=== PATIENT | male | born 1965 | race Caucasian/White ===

== ENCOUNTER 2018-04-29 10:15 | Emergency (ER) | payer MEDICAID, OTHER ==
[~2018-04-29] VITALS: Ht 185.4 cm; Wt 92.0 kg
--- NOTE | 2018-04-29 10:54 | NUR ---
Called [facility]. They will inform Dr Heart to come and see pt as we are not doing telepsych during this time.
[2018-04-29 11:11] LABS: URINE AMPHETAMINE SCREEN NEGATIVE (Neg); URINE BARBITUATE SCREEN POSITIVE (Neg); URINE BENZODIAZEPINES SCREEN NEGATIVE (Neg); URINE CANNABINOID SCREEN NEGATIVE (Neg); URINE COCAINE SCREEN NEGATIVE (Neg); URINE METHADONE SCREEN NEGATIVE (Neg); URINE OPIATE SCREEN NEGATIVE (Neg); URINE PHENCYCLIDINE SCREEN NEGATIVE (Neg)
[2018-04-29 11:17] LABS: BASOPHILS % (AUTO) 0.8 % (0-1); EOSINOPHILS % (AUTO) 0.8 % (0-6); HEMATOCRIT 42.2 % (42.0-52.0); HEMOGLOBIN 14.2 g/dl (14.0-17.9); LYMPHOCYTES # (AUTO) 1.5 X10'3 (1.1-4.8); LYMPHOCYTES % (AUTO) 23.8 % (21-51); MEAN CORPUSCULAR HEMOGLOBIN 28.4 PG (27.0-31.0); MEAN CORPUSCULAR HGB CONC 33.6 g/dL (33.0-36.5); MEAN CORPUSCULAR VOLUME 84.7 FL (78-98); MEAN PLATELET VOLUME 6.2 FL (7.4-10.4); MONOCYTES # (AUTO) 0.6 X10'3 (0-0.9); MONOCYTES % (AUTO) 9.7 % (2-12); NEUTROPHILS # (AUTO) 4.2 X10'3 (1.8-7.7); NEUTROPHILS % (AUTO) 64.9 % (42-75); PLATELET COUNT 326 X10'3 (140-440); RED BLOOD COUNT 4.98 X10'6 (4.70-6.10); RED CELL DISTRIBUTION WIDTH 15.5 % (11.5-14.5); WHITE BLOOD COUNT 6.4 X10'3 (4.5-11.0)
--- NOTE | 2018-04-29 11:50 | NUR ---
Dr Heart in speaking with pt at bedside.
[2018-04-29 11:51] LABS: ALANINE AMINOTRANSFERASE 24 U/L (12-78); ALBUMIN 3.7 G/DL (3.4-5.0); ALBUMIN/GLOBULIN RATIO 0.9 (1.1-1.5); ALKALINE PHOSPHATASE 116 IU/L (46-116); ANION GAP 5 (8-16); ASPARTATE AMINO TRANSFERASE 16 U/L (10-37); BILIRUBIN,TOTAL 0.2 MG/DL (0.1-1.0); BLOOD UREA NITROGEN 12 MG/DL (7-18); BUN/CREATININE RATIO 13.3 (5.4-32.0); CALCIUM 9.1 MG/DL (8.5-10.1); CHLORIDE 102 MMOL/L (99-107); ETHANOL < 0.010 GM/DL (0.0-0.010); GLUCOSE 97 MG/DL (70-104); POTASSIUM 3.9 MMOL/L (3.5-5.1); SODIUM 139 MMOL/L (135-145); TOTAL CARBON DIOXIDE 31.7 MMOL/L (24-32); eGFR 88 ML/MIN
[2018-04-29] MEDS ORDERED: NO HOME MEDS (13:10)
--- NOTE | 2018-04-29 14:12 | NUR ---
Pt sitting up in chair. Calm and cooperative.
[2018-04-29] MEDS ORDERED: clonazePAM 1mg tablet PO ONE (15:05)
[2018-04-29] MEDS ORDERED: cloNIDine 0.1 MG/24 HOUR patch (7 day patch) TD ONE (15:05)
[2018-04-29] MEDS: risperiDONE 0.5mg tablet PO ONE ×2 (15:16→15:39)
--- NOTE | 2018-04-29 18:34 | NUR ---
ASSUMED PT CARE FROM [place]; LABS, VITALS, MEDICATIONS AND PT OVERALL CONDITION REVIEWED. PT ASSESSED IS SLEEPING ON L SIDE, APPEARS IN NO ACUTE DISTRESS. RESPIRATION EVEN,UNLABORED. PT IS MEDICALLY CLEARED ON , PENDING [facility] ASSESSMENT.
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
--- NOTE | 2018-04-29 20:10 | NUR ---
PT EVALUATED BY [facility] WHO SAYS HE MEETS CRITERIA FOR A 5150 HOLD DUE TO "SUICIDAL IDEATION" AND HOMMICIDAL IDEATION. I TALKED TO THE MENTAL HEALTH DYE FEEDER AND TOLD HER HIS THREATS AGAINST STAFF WOULD NOT BE TOLERATED AND [employer] WOULD BE CALLED.
--- NOTE | 2018-04-29 20:55 | NUR ---
PT HAS BEEN SITTING QUIETLY FOR APPROX 30 MINS. ANTONIO FROM [employer] HANDED HIM A BASIA.
--- NOTE | 2018-04-29 23:38 | NUR ---
PT APPEARS TO BE SLEEPING.
[2018-04-30] MEDS: risperiDONE 0.5mg tablet PO SCH ×2 (00:35→09:17)
[2018-04-30] MEDS: cloNIDine 0.1 mg tablet PO SCH ×2 (00:35→09:16)
--- NOTE | 2018-04-30 01:02 | NUR ---
PT UP REQUESTING NIGHT TIME MEDICATIONS, I UPDATED HIS MEDICATIONS TO SHOW BID, RECOMMENDED. UPON ATTEMPTING TO GIVE PATIENT HIS MEDICATIONS HE REFUSED SAYING HE DIDN'T WANT IT ANYMORE. MEDICATIONS DISPOSED OF PER PROTOCOL.
--- NOTE | 2018-04-30 02:06 | NUR ---
PT LAYING ON L SIDE, RESP EVEN, UNLABORED.
--- NOTE | 2018-04-30 06:40 | NUR ---
Patient resting quietly no distress.
--- NOTE | 2018-04-30 09:04 | NUR ---
At 0830 patient refused to take meds unless klonopin is ordered. Spoke with PA, awaiting orders.
[2018-04-30] MEDS ORDERED: clonazePAM 1mg tablet PO ONE (09:05)
[2018-04-30 14:13] LABS: CLARITY,URINE CLEAR (Clear); COLOR,URINE YELLOW (Yellow); GLUCOSE, URINE NEGATIVE (Neg); KETONES,URINE NEGATIVE (Neg); LEUKOCYTE ESTERASE ,URINE NEGATIVE (Neg); NITRITES, URINE NEGATIVE (Neg); OCCULT BLOOD,URINE TRACE-INTACT (Neg); PROTEIN,URINE NEGATIVE (Neg); UROBILINOGEN,URINE 0.2 E.U/dL (0.2-1.0)
[2018-04-30 14:17] LABS: UA COLLECTION TYPE CLN CATCH MIDSTREAM
[2018-04-30 14:21] LABS: BACTERIA,URINE NONE SEEN /HPF (Neg); RBC,URINE 0-2 /HPF (0-2); SQUAMOUS EPITHELIAL CELL,UR FEW /LPF (FEW); WBC,URINE NONE SEEN /HPF (0-4)
--- NOTE | 2018-04-30 17:09 | NUR ---
Pt. given cloths and belongings for transport to [facility] by [facility]
[2018-04-30 17:21] VITALS: BP 138/95
== END 2018-04-30 17:23 ==
LOC: ER 10:16
DX: F32.9 Major depressive disorder, single episode, unspecified (principal); R44.1 Visual hallucinations; R44.0 Auditory hallucinations; H53.8 Other visual disturbances; R45.1 Restlessness and agitation; Z59.0 Homelessness
CPT/HCPCS: 36415; 80053; 80305; 80320; 81001; 84443; 85025; 99285

== ENCOUNTER 2018-05-21 02:38 | Emergency (ER) | payer MEDICAID ==
[~2018-05-21] VITALS: Ht 185.4 cm; Wt 69.3 kg
[~2018-05-21 02:38] MED LIST: NO HOME MEDS
--- NOTE | 2018-05-21 03:10 | NUR ---
on assessment, pt no longer is experiencing chest pain
[2018-05-21 03:22] LABS: BASOPHILS % (AUTO) 0.5 % (0-1); EOSINOPHILS # (AUTO) 0.1 X10'3 (0-0.9); EOSINOPHILS % (AUTO) 0.8 % (0-6); HEMATOCRIT 39.3 % (42.0-52.0); HEMOGLOBIN 13.1 g/dl (14.0-17.9); LYMPHOCYTES # (AUTO) 2.1 X10'3 (1.1-4.8); MEAN CORPUSCULAR HEMOGLOBIN 27.6 PG (27.0-31.0); MEAN CORPUSCULAR HGB CONC 33.3 g/dL (33.0-36.5); MEAN CORPUSCULAR VOLUME 82.9 FL (78-98); MEAN PLATELET VOLUME 6.3 FL (7.4-10.4); MONOCYTES # (AUTO) 1.1 X10'3 (0-0.9); MONOCYTES % (AUTO) 13.2 % (2-12); NEUTROPHILS # (AUTO) 4.8 X10'3 (1.8-7.7); NEUTROPHILS % (AUTO) 59.5 % (42-75); PLATELET COUNT 329 X10'3 (140-440); RED BLOOD COUNT 4.74 X10'6 (4.70-6.10); RED CELL DISTRIBUTION WIDTH 14.9 % (11.5-14.5)
[2018-05-21 03:32] LABS: ALANINE AMINOTRANSFERASE 20 U/L (12-78); ALBUMIN 3.7 G/DL (3.4-5.0); ALBUMIN/GLOBULIN RATIO 0.9 (1.1-1.5); ALKALINE PHOSPHATASE 108 IU/L (46-116); ANION GAP 7 (8-16); ASPARTATE AMINO TRANSFERASE 24 U/L (10-37); BILIRUBIN,TOTAL 0.3 MG/DL (0.1-1.0); BLOOD UREA NITROGEN 18 MG/DL (7-18); CALCIUM 9.2 MG/DL (8.5-10.1); CHLORIDE 102 MMOL/L (99-107); CREATININE 0.82 MG/DL (0.60-1.10); GLUCOSE 86 MG/DL (70-104); POTASSIUM 3.9 MMOL/L (3.5-5.1); SODIUM 138 MMOL/L (135-145); TOTAL CARBON DIOXIDE 28.9 MMOL/L (24-32); TOTAL PROTEIN 7.6 G/DL (6.4-8.2); eGFR > 90 ML/MIN
[2018-05-21 03:38] LABS: INR 1.1 INR; PARTIAL THROMBOPLASTIN TIME 26 SECONDS (22-32); PROTHROMBIN TIME 10.7 SECONDS (9.0-12.0)
[2018-05-21 04:07] VITALS: BP 152/95
== END 2018-05-21 04:09 | disposition home or self-care (01) ==
LOC: ER 02:39
DX: R42 Dizziness and giddiness (principal); R07.9 Chest pain, unspecified; F17.200 Nicotine dependence, unspecified, uncomplicated; F12.90 Cannabis use, unspecified, uncomplicated; F15.90 Other stimulant use, unspecified, uncomplicated; Z59.0 Homelessness
CPT/HCPCS: 36415; 71045; 80053; 84484; 85025; 85610; 85730; 93005; 99284

== ENCOUNTER 2019-01-27 11:43 | Emergency (ER) | payer MEDICAID ==
[~2019-01-27] VITALS: Ht 185.4 cm; Wt 90.9 kg
[2019-01-27 11:56] VITALS: BP 103/91
== END 2019-01-27 14:19 | disposition home or self-care (01) ==
LOC: ER 11:44
DX: F10.10 Alcohol abuse, uncomplicated (principal); F15.10 Other stimulant abuse, uncomplicated; F12.90 Cannabis use, unspecified, uncomplicated; Z59.0 Homelessness
CPT/HCPCS: 99281

== ENCOUNTER 2019-01-27 14:27 | Emergency (ER) | payer MEDICAID ==
[~2019-01-27] VITALS: Ht 188 cm; Wt 94.7 kg
[2019-01-27 14:30] VITALS: BP 140/84
== END 2019-01-27 15:15 | disposition home or self-care (01) ==
LOC: ER 14:28
DX: Z76.5 Malingerer [conscious simulation] (principal); R45.851 Suicidal ideations; R06.03 Acute respiratory distress; F10.10 Alcohol abuse, uncomplicated; F12.90 Cannabis use, unspecified, uncomplicated; F15.90 Other stimulant use, unspecified, uncomplicated; Z59.0 Homelessness
CPT/HCPCS: 93005; 99283

== ENCOUNTER 2019-02-01 09:41 | Emergency (ER) | payer SELFPAY ==
[~2019-02-01] VITALS: Ht 185.4 cm; Wt 93.0 kg
--- NOTE | 2019-02-01 10:36 | NUR ---
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
[2019-02-01 11:34] VITALS: BP 154/74
[2019-02-01] MEDS ORDERED: PANT-47 PO (12:13)
[2019-02-01] MEDS ORDERED: GABA-532 PO (12:13)
--- NOTE | 2019-02-01 12:40 | NUR ---
Nino orozco in [facility] - 02/01/19 at 1250 by [email or web address] orthotist prosthetist in room
[2019-02-01] MEDS ORDERED: LORazepam 1 MG tablet PO ONE (12:50)
== END 2019-02-01 12:54 | disposition home or self-care (01) ==
LOC: ER 09:42
DX: F41.9 Anxiety disorder, unspecified (principal); I10 Essential (primary) hypertension; G89.29 Other chronic pain; F32.9 Major depressive disorder, single episode, unspecified; F12.90 Cannabis use, unspecified, uncomplicated; F15.90 Other stimulant use, unspecified, uncomplicated; Z59.0 Homelessness
CPT/HCPCS: 99284

== ENCOUNTER 2019-02-05 13:15 | Emergency (ER) | payer MEDICAID, OTHER ==
[~2019-02-05] VITALS: Ht 185.4 cm; Wt 91.8 kg
[~2019-02-05 13:15] MED LIST changes: +GABA-532 PO; +PANT-47 PO
[2019-02-05 13:21] VITALS: BP 146/99
--- NOTE | 2019-02-05 13:34 | NUR ---
DURING EKG, PT TOLD TECH HE DID METH THIS AM.
[2019-02-05 14:21] LABS: BASOPHILS % (AUTO) 0.6 % (0-1); EOSINOPHILS # (AUTO) 0.1 X10'3 (0-0.9); EOSINOPHILS % (AUTO) 1.3 % (0-6); HEMATOCRIT 41.5 % (42.0-52.0); HEMOGLOBIN 14.2 g/dl (14.0-17.9); LYMPHOCYTES # (AUTO) 1.5 X10'3 (1.1-4.8); LYMPHOCYTES % (AUTO) 25.6 % (21-51); MEAN CORPUSCULAR HEMOGLOBIN 29.2 PG (27.0-31.0); MEAN CORPUSCULAR HGB CONC 34.2 g/dL (33.0-36.5); MEAN CORPUSCULAR VOLUME 85.4 FL (78-98); MEAN PLATELET VOLUME 6.3 FL (7.4-10.4); MONOCYTES # (AUTO) 0.7 X10'3 (0-0.9); MONOCYTES % (AUTO) 11.2 % (2-12); NEUTROPHILS # (AUTO) 3.6 X10'3 (1.8-7.7); NEUTROPHILS % (AUTO) 61.3 % (42-75); PLATELET COUNT 286 X10'3 (140-440); RED BLOOD COUNT 4.87 X10'6 (4.70-6.10); RED CELL DISTRIBUTION WIDTH 14.4 % (11.5-14.5); WHITE BLOOD COUNT 5.8 X10'3 (4.5-11.0)
[2019-02-05 14:39] LABS: ALANINE AMINOTRANSFERASE 28 U/L (12-78); ALKALINE PHOSPHATASE 118 IU/L (46-116); ANION GAP 5 (8-16); ASPARTATE AMINO TRANSFERASE 23 U/L (10-37); BILIRUBIN,TOTAL 0.3 MG/DL (0.1-1.0); BLOOD UREA NITROGEN 16 MG/DL (7-18); BUN/CREATININE RATIO 15.1 (5.4-32.0); CALCIUM 8.7 MG/DL (8.5-10.1); CHLORIDE 102 MMOL/L (99-107); CREATININE 1.06 MG/DL (0.60-1.10); GLUCOSE 107 MG/DL (70-104); POTASSIUM 3.9 MMOL/L (3.5-5.1); SODIUM 138 MMOL/L (135-145); TOTAL PROTEIN 7.9 G/DL (6.4-8.2); eGFR 73 ML/MIN
[2019-02-05] MEDS ORDERED: PANT40TA4 PO (15:19)
[2019-02-05] MEDS ORDERED: GABA-532 PO (15:19)
== END 2019-02-05 15:24 | disposition home or self-care (01) ==
LOC: ER 13:17
DX: G89.29 Other chronic pain (principal); I10 Essential (primary) hypertension; F41.9 Anxiety disorder, unspecified; F32.9 Major depressive disorder, single episode, unspecified; F12.90 Cannabis use, unspecified, uncomplicated; F15.90 Other stimulant use, unspecified, uncomplicated; Z59.0 Homelessness; Z79.899 Other long term (current) drug therapy
CPT/HCPCS: 36415; 71045; 80053; 84484; 85025; 93005; 99284